=== PATIENT | female | born 1990 | race Caucasian/White ===

== ENCOUNTER 2021-07-25 11:51 | Emergency (ER) | payer MEDICAID, SELFPAY ==
--- NOTE | 2021-07-25 11:45 | RT.EKG_ITS ---
APPROVED REPORT Exam: Resting ECG Reason for Exam: DRUG OVERDOSE? Patient Location: E HR:58 bpm ECG Measurements Heart Rate 58 AXIS NE 153 P 35 QRSd 93 QRS 32 QT 417 T 31 QTc 410 Conclusion Sinus bradycardia...rate< 60 Low voltage, precordial leads...precordial leads <1.0mV sinus bradycardia at 58, normal axis, narrow QRS, QTC 410, no STEMI
[2021-07-25 11:55] VITALS: BP 91/74; PULSE 60; RESP 20; TEMP 36.7; O2SAT 100
[2021-07-25 12:41] LABS: Abs Immature Grans 0.03 10^3/uL (0.0-0.06); Absolute Basophil Count 0.03 10^3/uL (0.0-0.2); Absolute Eosinophil Count 0.24 10^3/uL (0.0-0.7); Absolute Lymphocyte Count 3.15 10^3/uL (1.2-3.4); Absolute Monocyte Count 0.54 10^3/uL (0.1-0.8); Absolute Neutrophil Count 3.51 10^3/uL (1.2-6.7); Basophils % 0.4; Eosinophils % 3.2; HCT 42.8 % (36.0-46.0); HGB 14.2 g/dL (11.2-15.7); Immature Grans % 0.4; MCH 29.5 pg (27.0-33.0); MCHC 33.2 % (32.0-36.0); MCV 88.8 fL (80-95); MPV 11.9 fL (8.0-11.0); Monocytes % 7.2; Neutrophils % 46.8; Nucleated RBC 0 %; Platelet Count 169 10^3/uL (130-400); RBC 4.82 10^6/uL (3.93-5.22); RDW 12.7 % (11.7-14.6); RDW-SD 41.5 fL
[2021-07-25 12:44] LABS: Clarity Clear (Clear)
[2021-07-25 12:45] LABS: Bilirubin Negative (Negative); Blood Negative (Negative); Glucose Negative (Negative); Ketones Negative (Negative); Leukocyte Esterase Negative (Negative); Nitrite Negative (Negative); Urobilinogen 0.2 EU/dL (Up TO 0.2)
[2021-07-25 13:06] LABS: Albumin 3.7 g/dL (3.4-5.0); Alkaline Phosphatase 103 U/L (46-116); Anion Gap 6.9 mmol/L (3-11); BUN 9 mg/dL (7-18); Bilirubin, Total 0.3 mg/dL (0.2-1.0); CO2 31.1 mmol/L (21.0-32.0); CREATININE 0.7 mg/dL (0.55-1.02); Chloride 102 mmol/L (98-107); Glucose 132 mg/dL (74-106); Potassium 4.6 mmol/L (3.5-5.1); Sodium 140 mmol/L (136-145); Total Protein 7.1 g/dL (6.4-8.2)
[2021-07-25 13:07] LABS: ALT 40 U/L (14-59); AST 23 U/L (15-37); Acetaminophen < 2 ug/mL (10-30); Magnesium 1.8 mg/dL (1.8-2.4); TSH (W/Ref FT4) 0.54 uIU/mL (0.36-3.74)
--- NOTE | 2021-07-25 13:26 | W.ED.GENAD ---
Discharge Plan Disposition Patient Disposition: HOME Condition: Stable Discharge Details Clinical Impression: Overdose Primary Care Provider: None,None ED Provider: Rivas Sen Home Meds and New Rx's Prescriptions: Continued bupropion HCl [Wellbutrin SR] 150 mg Tablet Sustained-Release 12 Hr 150 mg PO QAM RF: 0 clonidine HCl 0.1 mg Tablet 0.1 mg PO TID RF: 0 gabapentin 800 mg Tablet 800 mg PO QID RF: 0 lorazepam 1 mg Tablet 1 mg PO BID RF: 0 prazosin 2 mg Capsule 6 mg PO QPM RF: 0 duloxetine [Cymbalta] 60 mg Capsule,Delayed Release(Dr/Ec) 60 mg PO BID RF: 0 buprenorphine-naloxone [Suboxone] 12-3 mg Film 1 film BUCCAL Q24H RF: 0 Discharge Instructions Additional Instructions: follow up with [facility] human services, they should be calling you tomorrow take your medication as prescribed if you have thoughts of self harm return to the emergency department or if you feel more ill Discharge Data Discharge Date/Time-TO BE ENTERED AT DEPARTURE: 07/25/21 17:50 Medical Decision Making <Doreen Edwards MD - Last Filed: 08/01/21 14:23> Eli Juan is a 30-year-old woman presenting to emergency department for intentional overdose due to feeling anxious about her overall life situation, recently moved here from [place]. On exam Pt is well and toxic appearing. Tearful. Benign cardiopulmonary exam. Concern for suicidality, clonidine overdose, doubt other intentional ingestion or other act of self-harm. Exam/hx at this time not c/w trauma, acute non-psychiatric intra-cranial process, sepsis. Plan for IV placement, EKG, telemetry, screening labs. I discussed Pt with poison control, who stated that Pt could be medically cleared once heart rate persistently above 60 (currently in the 50s). Labs reviewed, WBC 7.5, Hgb 14.2, K 4.6, AG 6.9, Cr 0.7. Pt observed, continues to do well, talking with her who remains at bedside. HR improved to 60s. Plan for mental health eval. Pt signed out to Dr. Sen with mental health eval pending. Medical Records Medical records reviewed: Yes I reviewed the patient's medical records. Lab Data Lab results reviewed: Yes I reviewed the patient's lab results. Labs: Laboratory Tests Range/Units 07/25/21 07/25/21 07/25/21 12:30 12:30 12:30 WBC (4.4-10.8) 10^3/uL 7.50 RBC (3.93-5.22) 10^6/uL 4.82 Hgb (11.2-15.7) g/dL 14.2 Hct (36.0-46.0) % 42.8 MCV (80-95) fL 88.8 MCH (27.0-33.0) pg 29.5 MCHC (32.0-36.0) % 33.2 RDW (11.7-14.6) % 12.7 Plt Count (130-400) 10^3/uL 169 MPV (8.0-11.0) fL 11.9 H Immature Gran % 0.4 Neutrophils % 46.8 Lymphocytes % 42.0 Monocytes % 7.2 Eosinophils % 3.2 Basophils % 0.4 Nucleated RBC % % 0 Absolute Neutrophils (1.2-6.7) 10^3/uL 3.51 Absolute Lymphocytes (1.2-3.4) 10^3/uL 3.15 Absolute Monocytes (0.1-0.8) 10^3/uL 0.54 Absolute Eosinophils (0.0-0.7) 10^3/uL 0.24 Absolute Basophils (0.0-0.2) 10^3/uL 0.03 Sodium (136-145) mmol/L 140 Potassium (3.5-5.1) mmol/L 4.6 Chloride (98-107) mmol/L 102 Carbon Dioxide (21.0-32.0) mmol/L 31.1 Anion Gap (3-11) mmol/L 6.9 BUN (7-18) mg/dL 9 Creatinine (0.55-1.02) mg/dL 0.7 Estimated GFR/1.73 m2 (mL/min/1.73m2) >= 60.00 Glucose (74-106) mg/dL 132 H Calcium (8.5-10.1) mg/dL 9.0 Magnesium (1.8-2.4) mg/dL 1.8 Total Bilirubin (0.2-1.0) mg/dL 0.3 AST (15-37) U/L 23 ALT (14-59) U/L 40 Alkaline Phosphatase (46-116) U/L 103 Total Protein (6.4-8.2) g/dL 7.1 Albumin (3.4-5.0) g/dL 3.7 TSH (0.36-3.74) uIU/mL 0.54 Urine Color (Yellow) Urine Clarity (Clear) Urine pH (5-8) Ur Specific Rayne (1.005-1.025) Urine Protein (Negative) mg/dL Urine Ketones (Negative) mg/dL Urine Blood (Negative) Urine Nitrite (Negative) Urine Bilirubin (Negative) Urine Urobilinogen (Up TO 0.2) EU/dL Ur Leukocyte Esterase (Negative) Urine Glucose (Negative) mg/dL Urine Opiates Screen (Negative) Negative Urine Methadone Screen (Negative) Negative Acetaminophen (10-30) ug/mL < 2 Ur Barbiturates Screen (Negative) Negative Ur Tricyclics Screen (Negative) Negative Ur Amphetamines Screen (Negative) Negative U Benzodiazepines Scrn (Negative) Positive Urine Cocaine Screen (Negative) Negative Ur THC Screen (Negative) Negative Range/Units 07/25/21 12:30 WBC (4.4-10.8) 10^3/uL RBC (3.93-5.22) 10^6/uL Hgb (11.2-15.7) g/dL Hct (36.0-46.0) % MCV (80-95) fL MCH (27.0-33.0) pg MCHC (32.0-36.0) % RDW (11.7-14.6) % Plt Count (130-400) 10^3/uL MPV (8.0-11.0) fL Immature Gran % Neutrophils % Lymphocytes % Monocytes % Eosinophils % Basophils % Nucleated RBC % % Absolute Neutrophils (1.2-6.7) 10^3/uL Absolute Lymphocytes (1.2-3.4) 10^3/uL Absolute Monocytes (0.1-0.8) 10^3/uL Absolute Eosinophils (0.0-0.7) 10^3/uL Absolute Basophils (0.0-0.2) 10^3/uL Sodium (136-145) mmol/L Potassium (3.5-5.1) mmol/L Chloride (98-107) mmol/L Carbon Dioxide (21.0-32.0) mmol/L Anion Gap (3-11) mmol/L BUN (7-18) mg/dL Creatinine (0.55-1.02) mg/dL Estimated GFR/1.73 m2 (mL/min/1.73m2) Glucose (74-106) mg/dL Calcium (8.5-10.1) mg/dL Magnesium (1.8-2.4) mg/dL Total Bilirubin (0.2-1.0) mg/dL AST (15-37) U/L ALT (14-59) U/L Alkaline Phosphatase (46-116) U/L Total Protein (6.4-8.2) g/dL Albumin (3.4-5.0) g/dL TSH (0.36-3.74) uIU/mL Urine Color (Yellow) Yellow Urine Clarity (Clear) Clear Urine pH (5-8) 7.0 Ur Specific Rayne (1.005-1.025) 1.020 Urine Protein (Negative) mg/dL Negative Urine Ketones (Negative) mg/dL Negative Urine Blood (Negative) Negative Urine Nitrite (Negative) Negative Urine Bilirubin (Negative) Negative Urine Urobilinogen (Up TO 0.2) EU/dL 0.2 Ur Leukocyte Esterase (Negative) Negative Urine Glucose (Negative) mg/dL Negative Urine Opiates Screen (Negative) Urine Methadone Screen (Negative) Acetaminophen (10-30) ug/mL Ur Barbiturates Screen (Negative) Ur Tricyclics Screen (Negative) Ur Amphetamines Screen (Negative) U Benzodiazepines Scrn (Negative) Urine Cocaine Screen (Negative) Ur THC Screen (Negative) ECG Data Attestation: I personally reviewed and interpreted this ECG (s) as follows: Interpretation: EKG shows sinus bradycardia at 58, normal axis, narrow QRS, QTC 410, no STEMI <Rivas Sen MD - Last Filed: 07/25/21 17:41> pt was seen bylucretia Vasques and is not voicing si or thoughts of self harm anymore and states she took the clonidine earlier out of being overly anxious. They moved here from [place] a few months ago and has had trouble finding housing and has not set up a pcp or met with [facility] or other mental health providers since moving here. [facility] is going to set her up with services and reach out to her tomorrow and her significant other is comfortable with taking her home. She is denying si or hi or thoughts of self harm on my exam and clearly states she did not try to kill herself earlier and was overly anxious. She will follow up with mental health tomorrow and is placed on list to get set up with a primary care provider. Return precautions given HPI <Doreen Edwards MD - Last Filed: 08/01/21 14:23> General Mode of arrival: wheelchair. Date/Time Provider Initiated Documentation: 07/25/21 12:04. Limitations to Documentation: no limitations. Information obtained by: patient, family, RN notes reviewed and old records reviewed. HPI Narrative: Eli Juan is a 30-year-old woman presenting to emergency department for intentional overdose. Patient is accompanied by her who also provides the history. Patient reports that her life has become too overwhelming, and that she just wants to . Patient states multiple times I hate myself, I just want to be . Patient reports that she has a history of self-harm and suicidal thinking, and became overcome by these thoughts this morning and took approximately 8 of her prescribed clonidine tablets (0.1 mg each) this morning at 8 AM. Patient reports that she took all of her other scheduled medications as prescribed prior to that this morning, patient denies any other intentional ingestion of other medications or other substances. She denies alcohol use, recreational drug use. Patient reports that she feels safe at home and that no one is threatening her or harming her. She denies fever, any pain, SOB, cough, vomiting, diarrhea, numbness, weakness, rash, changes in appetite. Has been eating and drinking as usual. Related Data Home Medications Medication Instructions Recorded Confirmed buprenorphine-naloxone [Suboxone] 1 film BUCCAL Q24H 07/25/21 07/25/21 bupropion HCl [Wellbutrin SR] 150 mg PO QAM 07/25/21 07/25/21 clonidine HCl 0.1 mg PO TID 07/25/21 07/25/21 duloxetine [Cymbalta] 60 mg PO BID 07/25/21 07/25/21 gabapentin 800 mg PO QID 07/25/21 07/25/21 lorazepam 1 mg PO BID 07/25/21 07/25/21 prazosin 6 mg PO QPM 07/25/21 07/25/21 Allergies Allergy/AdvReac Type Severity Reaction Status Date / Time No Known Allergies Allergy Unverified 07/25/21 12:09 General Stated Complaint: PsychEval INGRID: 2 Review of Systems <Doreen Edwards MD - Last Filed: 08/01/21 14:23> Narrative: Constitutional: denies fevers Eyes: denies eye pain ENT: denies ear pain, dental pain, sore throat Cardiovascular: denies chest pain Respiratory: denies SOB, cough GI: denies abdominal pain, vomiting, diarrhea : denies flank pain MSK: denies back pain, neck pain, arthralgias, myalgias Skin: denies rash Neuro: denies headaches, numbness, weakness Psych: denies hallucinations, vanessa, homicidality, reports suicidality PFSH <Doreen Edwards MD - Last Filed: 08/01/21 14:23> Active Problem List Overdose (Acute) Social History Smoking/Tobacco Use Status: Current every day Tobacco Type: cigarettes Tobacco: How many years used: 10 Smoking risk assessment performed?: Yes Alcohol Intake: former Drug use: Current Sobriety Substance use type: does not use Do you feel safe at home: Yes Do you feel safe in your relationship?: Yes Exam <Doreen Edwards MD - Last Filed: 08/01/21 14:23> Narrative Exam Narrative: Constitutional: well and [id number], crying but otherwise conversing normally HENT: head atraumatic/normocephalic/normal inspection, mucous membranes moist Eyes: conjunctiva normal, sclera normal, pupils 3mm b/l Neck: no stridor, normal ROM, trachea midline Chest: normal inspection Resp: normal work of breathing, LCTAB Cardio: normal rate, normal rhythm, no murmur appreciated GI: abdomen soft, non-tender, non-distended Back: normal inspection, no rash Skin: warm, dry, normal color, no rash Neuro: alert, not altered, grossly non-focal, normal tone Ext: no edema Psych: depressed mood, tearful, no apparent hallucinations Course <Doreen Edwards MD - Last Filed: 08/01/21 14:23> Vital Signs Vital signs: Vital Signs Temperature 36.7 C 07/25/21 11:55 Pulse 60 07/25/21 11:55 Respiratory Rate 20 07/25/21 11:55 Blood Pressure 91/74 L 07/25/21 11:55 Pulse Oximetry 100 07/25/21 11:55 Temperature 36.7 C 07/25/21 11:55 Temperature Source Temporal Artery Scan 07/25/21 11:55 Pulse 60 07/25/21 11:55 Respiratory Rate 20 07/25/21 11:55 Respiratory Effort Non-Labored 07/25/21 12:10 Blood Pressure 91/74 L 07/25/21 11:55 Blood Pressure Position Sitting 07/25/21 11:55 Pulse Oximetry 100 07/25/21 11:55 Oxygen Delivery Method Room Air 07/25/21 11:55 Oxygen Flow Rate 0 07/25/21 11:55 Pain Level 0 07/25/21 11:55 Lab/Test Results Lab/Test Results: Laboratory Tests Range/Units 07/25/21 07/25/21 07/25/21 12:30 12:30 12:30 WBC (4.4-10.8) 10^3/uL 7.50 RBC (3.93-5.22) 10^6/uL 4.82 Hgb (11.2-15.7) g/dL 14.2 Hct (36.0-46.0) % 42.8 MCV (80-95) fL 88.8 MCH (27.0-33.0) pg 29.5 MCHC (32.0-36.0) % 33.2 RDW (11.7-14.6) % 12.7 Plt Count (130-400) 10^3/uL 169 MPV (8.0-11.0) fL 11.9 H Immature Gran % 0.4 Neutrophils % 46.8 Lymphocytes % 42.0 Monocytes % 7.2 Eosinophils % 3.2 Basophils % 0.4 Nucleated RBC % % 0 Absolute Neutrophils (1.2-6.7) 10^3/uL 3.51 Absolute Lymphocytes (1.2-3.4) 10^3/uL 3.15 Absolute Monocytes (0.1-0.8) 10^3/uL 0.54 Absolute Eosinophils (0.0-0.7) 10^3/uL 0.24 Absolute Basophils (0.0-0.2) 10^3/uL 0.03 Sodium (136-145) mmol/L 140 Potassium (3.5-5.1) mmol/L 4.6 Chloride (98-107) mmol/L 102 Carbon Dioxide (21.0-32.0) mmol/L 31.1 Anion Gap (3-11) mmol/L 6.9 BUN (7-18) mg/dL 9 Creatinine (0.55-1.02) mg/dL 0.7 Estimated GFR/1.73 m2 (mL/min/1.73m2) >= 60.00 Glucose (74-106) mg/dL 132 H Calcium (8.5-10.1) mg/dL 9.0 Magnesium (1.8-2.4) mg/dL 1.8 Total Bilirubin (0.2-1.0) mg/dL 0.3 AST (15-37) U/L 23 ALT (14-59) U/L 40 Alkaline Phosphatase (46-116) U/L 103 Total Protein (6.4-8.2) g/dL 7.1 Albumin (3.4-5.0) g/dL 3.7 TSH (0.36-3.74) uIU/mL 0.54 Urine Color (Yellow) Yellow Urine Clarity (Clear) Clear Urine pH (5-8) 7.0 Ur Specific Rayne (1.005-1.025) 1.020 Urine Protein (Negative) mg/dL Negative Urine Ketones (Negative) mg/dL Negative Urine Blood (Negative) Negative Urine Nitrite (Negative) Negative Urine Bilirubin (Negative) Negative Urine Urobilinogen (Up TO 0.2) EU/dL 0.2 Ur Leukocyte Esterase (Negative) Negative Urine Glucose (Negative) mg/dL Negative Acetaminophen (10-30) ug/mL < 2 POC- Test(urine) Negative Sign Out <Doreen Edwards MD - Last Filed: 08/01/21 14:23> Sign Out Data: Sign Out Comment: Patient signed out to Dr. Sen at time of shift change with mental health evaluation pending. Last updated by Doreen Edwards MD at 07/25/21 17:03
[2021-07-25 13:42] LABS: *AMPHETAMINES SCREEN URINE Negative (Negative); *BARBITURATES SCREEN URINE Negative (Negative); *BENZODIAZEPINES SCREEN URINE Positive (Negative); Cannabinoids THC Negative (Negative); Cocaine Screen,Urine Negative (Negative); METHADONE URINE SCREEN Negative (Negative); OPIATES URINE SCREEN Negative (Negative); Tricyclic Antidepressants Negative (Negative)
--- NOTE | 2021-07-25 15:10 | CMSP_ITS ---
- If Service Date Differs Date of service: 07/25/21 Time of Service: 15:10 Care Management Safety Plan Status: Interim - Reason for Wait Reason for Wait: Assessment/Screening CM will respond to ED to assess patient after patient has been medically cleared and assessed by screener. If screener deems patient meets criteria for psychiatric stabilization CM will facilitate interdepartmental huddle with [facility] screener for safety planning considerations and meet with patient to review [facility] policy and safety plan, establish individual wishes for treatment and maintain patient rights. In the interim; please note safety plan below to guide patient care while awaiting further assessment in the ED. SAFETY PLAN: 1. Will remain on suicide precautions and in paper clothes. 2. Will remain in room under direct supervision of one-on-one staff at all times provided by CPSO, EMILY, EXTRUDER psychology instructor. 3. May have paper cups, plates, finger foods as well as a cardboard spoon with which to eat meals. 4. Follow [facility] Management of the Admitted Behavioral Health Patient policy. 5. Personal care: Comfort bath system only at this time. 6. No personal belongings at this time; per RN discretion. 7. Visitors: Per [facility] Covid Policy and at RN discretion. 8. Activities: Soft cart items, music tablet, television if available, and other activities at RN discretion. 9. Bathroom privileges: with escort in ED. Available in room without limitation on Med/Surg. 10. Phone: May use hospital phone at RN discretion. 11. Due to VOLUNTARY status, if patient wishes to leave [facility], staff will contact [facility] Crisis Screener ([phone]) and On-Call [employer] Cleaner ([phone]) as soon as possible. In the event of elopement, notify [facility] Police ([phone]). Patient is currently voluntarily at [facility] and seeking inpatient admission when a bed becomes available. [facility] Frontline Utility Worker will continue seeking placement. Please contact the Motor And Controls Tester [employer]stone Cleaner ([phone]) and [facility] Utility Worker ([phone]) for any needed changes in the Safety Plan. Safety plan has been provided to interdepartmental care team. DISPOSITION: Patient is evaluated by Layo [facility] Crisis Screener. Eli, her , and the [facility] screener create a safety plan and Eli is discharged to the community. Eli's has agreed to hold her medication for safekeeping and to dispense it as prescribed. Eli will follow up with outpatient services. Eli and her know how to contact [facility] Emergency Services and agree to call as needed.
--- NOTE | 2021-07-25 15:10 | PDOC.CMSAFED ---
- If Service Date Differs Date of service: 07/25/21 Time of Service: 15:10 Care Management Safety Plan Status: Interim - Reason for Wait Reason for Wait: Assessment/Screening CM will respond to ED to assess patient after patient has been medically cleared and assessed by screener. If screener deems patient meets criteria for psychiatric stabilization CM will facilitate interdepartmental huddle with [facility] screener for safety planning considerations and meet with patient to review [facility] policy and safety plan, establish individual wishes for treatment and maintain patient rights. In the interim; please note safety plan below to guide patient care while awaiting further assessment in the ED. SAFETY PLAN: 1. Will remain on suicide precautions and in paper clothes. 2. Will remain in room under direct supervision of one-on-one staff at all times provided by CPSO, EMILY, FACILITY MECHANIC bookstore manager. 3. May have paper cups, plates, finger foods as well as a cardboard spoon with which to eat meals. 4. Follow [facility] Management of the Admitted Behavioral Health Patient policy. 5. Personal care: Comfort bath system only at this time. 6. No personal belongings at this time; per RN discretion. 7. Visitors: Per [facility] Covid Policy and at RN discretion. 8. Activities: Soft cart items, music tablet, television if available, and other activities at RN discretion. 9. Bathroom privileges: with escort in ED. Available in room without limitation on Med/Surg. 10. Phone: May use hospital phone at RN discretion. 11. Due to VOLUNTARY status, if patient wishes to leave [facility], staff will contact [facility] Crisis Screener ([phone]) and On-Call Assembly Inspector Helper ([phone]) as soon as possible. In the event of elopement, notify [facility] Police ([phone]). Patient is currently voluntarily at [facility] and seeking inpatient admission when a bed becomes available. [facility] Frontline Pill Coater will continue seeking placement. Please contact the [employer] Operator Assembly Inspector Helper ([phone]) and [facility] Pill Coater ([phone]) for any needed changes in the Safety Plan. Safety plan has been provided to interdepartmental care team. DISPOSITION: Patient is evaluated by [facility] Crisis Screener. Eli, her , and the [facility] screener create a safety plan and Eli is discharged to the community. Eli's has agreed to hold her medication for safekeeping and to dispense it as prescribed. Eli will follow up with outpatient services. Eli and her know how to contact [facility] Emergency Services and agree to call as needed.
[2021-07-25] MEDS: Acetaminophen 500 MG TAB (15:24)
--- NOTE | 2021-07-26 01:12 | NUR.NOTE ---
Referral given to Care Management to establish pcp sooner rather than later for anxiety. Seen by [facility] today via zoom.Nursing Note:
--- NOTE | 2021-07-27 17:14 | PDOC.MHCN_ITS ---
Date of service: 07/25/21 Time of Service: 16:54 Mental Health Crisis Note Presenting Issue How did you arrive at the ED and why did you come: The patient presented to [facility] ED via with report of intentional overdose of her prescribed clonapine (8 x 0.1mg) at 8:00a today. Precipitating Factors Patient presents in standard issue scrubs with clean appearance. She is alert and oriented x4 with report of short-term memory deficits. Patient is able to recall events leading up to current ED admit. Eye contact is intermittent as patient appears mildly subdued. Speech is intelligible but mumbled, mixed flat / emotional tone. She reports her mood as Anxious with labile blunted affect. No appetite concerns. Poor / dysregulated sleep due to financial stressors. No report or presenting evidence of delusions or hallucinations. Thought process is coherent but perseverating on financial stressors, lack of housing, and not being connected to services since moving to [place] from [place] several months ago. She denies current SI/HI/SIB, intent or plan. She comments on recent overdose and states, I was feeling really overwhelmed and anxious. I get panic attacks all the time. I have a hard time functioning like everyone. It's not that I want to , I just don?t know how to live like this. She states not having a specific plan to overdose and reports doing so impulsively from panic and stress. She does not wish to pursue in-patient treatment at this time and would prefer discharging home with her in order to explore outpatient treatment options. Disposition BEHAVIOR: Cooperative, subdued EYE CONTACT: Intermittent MOOD: Anxious AFFECT: Labile blunted APPETITE: No reported issues. SLEEP(trouble falling/staying asleep: Dysregulated Plan Patient has declined need for in-patient placement or crisis intervention at this time and will be discharged home on a safety plan in agreement with collateral (Vignesh Juan, ) and attending medical provider Dr. Sen. - [facility] in-house referrals will be submitted for: psychiatric consult, counseling, and case management. [facility] CM will work with patient on getting established with a local PCP. - The patient's , Vignesh Juan ([phone]), has agreed to take charge of remaining medications. Currently they are residing at the [facility] in [place] ([address]). No additional reported access to means. - The patient has agreed to check-in calls .11 and .12 at 2:00p ([facility] will initiate) for status updates. - The patient has agreed to utilize coping skills and available supports and will contact situation rises to the level of emergent or thoughts of self-harm return. Signature Clinician's Name/Title: Ab Bush [facility] ALDEN clinician / HP
== END 2021-07-25 17:50 | disposition home or self-care (01) ==
PROVIDERS: Student in an Organized Health Care Education/Training Program; Emergency Provider Emergency Medicine
DX: T46.5X2A Poisoning by other antihypertensive drugs, intentional self-harm, initial encounter (principal); Z91.51 Personal history of suicidal behavior
CPT/HCPCS: 80053; 80307; 81025; 93005; 99285; 80329; 81003; 83735; 84443; 85025; 93010; 99284